=== PATIENT | female | born 1930 | race Asian ===

== ENCOUNTER 2020-11-12 18:03 | Emergency (ER) | payer OTHER ==
[~2020-11-12 18:03] MED LIST: ANUCORT-HC25 MG PR; DIFLUCAN150 MG PO; LEVAQUIN500 MG PO; MACROBID100 MG PO; NYSTATIN SUSP1 ML/ML PO; OMEPRAZOLE40 MG PO; PROBIOTIC & AC1 EACH PO
[2020-11-12 20:32] LABS: BASOPHIL 0.4 % (0-2); EOSINOPHIL 3.3 % (0-7); HCT 36.5 % (37.0-47.0); HGB 11.7 g/dl (12.5-16.0); LYMPHOCYTE 33.6 % (15-48); MCH 28.5 pg (25.0-31.0); MCHC 32.1 g/dL (32.0-36.0); MONOCYTE 11.9 % (0-12); MPV 10.1 fL (6.0-9.5); NEUTROPHIL 50.6 % (41-80); NRBC 0; PLT 188 K/uL (150-400); RDW 14.1 % (11.5-14.0); WBC 4.5 K/uL (4.0-10.5)
[2020-11-12 20:41] LABS: ALBUMIN 3.7 g/dL (3.4-5.0); BILIRUBIN - TOTAL 0.4 mg/dL (0.2-1.0); BUN/CREAT RATIO (CALC) 21.2 RATIO; CREATININE 0.66 mg/dL (0.51-0.95); GLOBULIN (CALCULATION) 3.6 g/dL; POTASSIUM 4.1 mmol/L (3.5-5.1); TOTAL PROTEIN 7.3 g/dL (6.4-8.2)
[2020-11-12] MEDS ORDERED: ULTRAM50 MG PO (23:41)
== END 2020-11-12 23:55 | disposition home or self-care (01) ==
LOC: FER 18:03
PROVIDERS: Emergency Medicine
DX: S22.31XA Fracture of one rib, right side, initial encounter for closed fracture (principal); I10 Essential (primary) hypertension; X58.XXXA Exposure to other specified factors, initial encounter
CPT/HCPCS: 36415; 71101; 80053; 82150; 83690; 85025; 87339; J2270; J2405